=== PATIENT | female | born 1985 ===

== ENCOUNTER 2021-07-05 05:47 | Day surgery (SDC) | payer OTHER ==
[2021-07-05] MEDS ORDERED: PROTONIX20 MG PO (08:33)
== END 2021-07-05 10:00 | disposition home or self-care (01) ==
LOC: AMB-ENDOS 05:47
PROVIDERS: ATTEND Surgery
DX: D13.1 Benign neoplasm of stomach (principal); K44.9 Diaphragmatic hernia without obstruction or gangrene; Z20.822 Contact with and (suspected) exposure to COVID-19

== ENCOUNTER 2022-04-03 05:49 | Day surgery (SDC) | payer OTHER ==
[~2022-04-03 05:49] MED LIST: GILENYA0.5 MG PO; PROTONIX20 MG PO; SYNTHROID88 MCG PO
[2022-04-03] MEDS ORDERED: PERCOCET 5-3251 EACH PO (09:37)
[2022-04-03] MEDS ORDERED: SURFAK240 M1 PO (09:37)
[2022-04-03] MEDS ORDERED: CARAFATE1 GM/10 ML PO (09:38)
[2022-04-03] MEDS ORDERED: NEXIUM 24HR20 M1 PO (09:38)
== END 2022-04-03 11:00 | disposition home or self-care (01) ==
LOC: CIR.AMB 05:49
PROVIDERS: ATTEND Surgery
DX: K80.10 Calculus of gallbladder with chronic cholecystitis without obstruction (principal); K82.8 Other specified diseases of gallbladder; K42.9 Umbilical hernia without obstruction or gangrene; Z87.891 Personal history of nicotine dependence; E03.9 Hypothyroidism, unspecified; K21.9 Gastro-esophageal reflux disease without esophagitis; E66.01 Morbid (severe) obesity due to excess calories